=== PATIENT | male | born 1960 | race Caucasian/White ===

== ENCOUNTER 2024-01-04 13:36 | Inpatient (IN) | payer MEDICARE, OTHER ==
[~2024-01-04] VITALS: Ht 177.8 cm; Wt 79.8 kg
[2024-01-04] MEDS ORDERED: VITAMIN D325 MCG PO (15:27)
[2024-01-04] MEDS ORDERED: CRESTOR5 M1 PO (15:29)
[2024-01-04] MEDS ORDERED: CANDICIDAL CAP1 EACH PO (15:31)
[2024-01-04] MEDS ORDERED: VITAMIN B150 MG PO (15:33)
[2024-01-04] MEDS ORDERED: ARTIFICIAL TEAR OPH (15:36)
[2024-01-04] MEDS ORDERED: DULCOLAX10 M1 R (15:38)
[2024-01-04] MEDS ORDERED: MILK OF MA400 MG/5 M PO (15:45)
[2024-01-04] MEDS ORDERED: FLEET ENEMA 13133 ML R (15:48)
[2024-01-04] MEDS ORDERED: IMODIUM A-D2 M2 PO (15:50)
[2024-01-04] MEDS ORDERED: MAALOX ADVANCE355 M1 PO (15:55)
[2024-01-04] MEDS ORDERED: [UNRECOGNIZED DRUG - OTHER] T (15:58)
[2024-01-04] MEDS ORDERED: LORazepam 1 MG TAB PO PRN (16:40)
[2024-01-04] MEDS ORDERED: Ziprasidone Mesylate 20 MG VIAL IM PRN (16:45)
[2024-01-04] MEDS ORDERED: Water, Sterile 10 ML VIAL IM PRN (16:50)
[2024-01-04] MEDS ORDERED: ARICEPT10 M1 PO (16:51)
[2024-01-04] MEDS ORDERED: RISPERDAL0.5 MG PO (16:52)
[2024-01-04] MEDS ORDERED: PAROXETINE40 MG PO (16:52)
[2024-01-04] MEDS ORDERED: VISTARIL25 MG PO (16:55)
[2024-01-04] MEDS ORDERED: ACETAMINOPHEN 325 MG TAB PO PRN (17:15)
[2024-01-04] MEDS ORDERED: Magnesium Hydroxide 30 ML UDC PO PRN (17:15)
[2024-01-04] MEDS ORDERED: MG-AL HYDROXIDE/SIMETICONE 30 ML UDC PO PRN (17:15)
[2024-01-04] MEDS ORDERED: Menthol/Zinc Oxide 4 GM THIN T PRN (17:40)
[2024-01-04 20:00] VITALS: BP 159/79
[2024-01-04] MEDS ORDERED: DIVALPROEX (DR) 250 MG TAB PO SCH (21:00)
[2024-01-04] MEDS ORDERED: Memantine Hydrochloride 10 MG TAB PO SCH (21:00)
[2024-01-05 06:19] LABS: BASO % 0.6 % (0.0-1.0); EOS # 0.1 10*3/uL (0.0-0.4); EOS % 0.7 % (1.0-4.0); HEMATOCRIT 41.9 % (42.0-52.0); LYMPH # 1.6 10*3/uL (1.3-4.4); MEAN CELL VOLUME 92.5 fl (80.0-94.0); MEAN CORPUSCULAR HGB CONC 32.5 g/dl (33.0-37.0); MEAN PLATELET VOLUME 10.3 fl (9.6-12.3); MONO # 0.6 10*3/uL (0.1-1.0); NEUT # 4.9 10*3/uL (2.3-7.9); NEUT % 68.6 % (47.0-73.0); PLATELET COUNT AUTOMATED 127 10*3/uL (130-400); RED BLOOD COUNT 4.53 10*6/uL (4.50-5.90); RED CELL DISTRI WIDTH 12.2 % (0-14.5); WHITE BLOOD COUNT 7.1 10*3/uL (4.8-10.8)
[2024-01-05 06:39] LABS: ALKALINE PHOSPHATASE 64 U/L (46-116); BUN 10 mg/dl (9-23); CHLORIDE 106 mmol/L (98-107); CHOLESTEROL 121 mg/dL (<200); LDL CHOLESTEROL 62 mg/dL (9-159); POTASSIUM 4.2 mmol/L (3.4-5.1); SGPT/ALT 16 U/L (5-49); TOTAL PROTEIN 5.9 gm/dL (6.0-8.0); TRIGLYCERIDES 91 mg/dl (<150)
[2024-01-05 06:46] LABS: VITAMIN D, 25-HYDROXY 77.5 ng/mL (30-100)
[2024-01-05 07:46] VITALS: BP 127/69
[2024-01-05] MEDS ORDERED: BREXPIPRAZOLE 1 MG TABLET PO SCH (09:00)
[2024-01-05] MEDS ORDERED: Rivastigmine Tartrate 4.6 MG/24 HR PATCH T SCH (09:00)
[2024-01-05 20:00] VITALS: BP 163/89
[2024-01-06 07:45] VITALS: BP 148/67
[2024-01-06] MEDS ORDERED: Rivastigmine Tartrate 9.5 MG/24 HR PATCH T SCH (09:00)
[2024-01-06 20:00] VITALS: BP 158/83
[2024-01-07 08:00] VITALS: BP 146/79
[2024-01-07] MEDS ORDERED: BREXPIPRAZOLE 2 MG TABLET PO SCH (21:00)
[2024-01-08 08:00] VITALS: BP 127/81
[2024-01-08] MEDS ORDERED: ATORVASTATIN CALCIUM 20 MG TAB PO SCH (09:00)
[2024-01-08] MEDS ORDERED: Thiamine 100 MG TAB PO SCH (09:00)
[2024-01-08 20:00] VITALS: BP 152/84
[2024-01-09 07:41] VITALS: BP 136/83
[2024-01-09] MEDS ORDERED: DIVALPROEX SODIUM 125 MG TAB PO SCH (13:00)
[2024-01-09 20:00] VITALS: BP 141/90
[2024-01-10 08:26] VITALS: BP 141/80
[2024-01-10] MEDS ORDERED: LORazepam 1 MG TAB PO SCH (13:00)
[2024-01-10 20:00] VITALS: BP 148/87
[2024-01-11 08:00] VITALS: BP 142/81
[2024-01-11] MEDS ORDERED: RIVASTIGMINE 13.3 MG/24 HR TDM T SCH (09:00)
[2024-01-11] MEDS ORDERED: Ziprasidone Hydrochloride 60 MG CAP PO ONE (09:10)
[2024-01-11] MEDS ORDERED: DIVALPROEX (DR) 500 MG TAB PO SCH (13:00)
[2024-01-11] MEDS ORDERED: Ziprasidone Hydrochloride 60 MG CAP PO SCH (17:00)
[2024-01-11 20:00] VITALS: BP 142/80
[2024-01-12 07:48] VITALS: BP 160/89
[2024-01-12 19:20] VITALS: BP 128/73
[2024-01-12] MEDS ORDERED: DIVALPROEX SODIUM 125 MG CAP PO SCH (21:00)
[2024-01-13 07:49] VITALS: BP 120/68
[2024-01-13] MEDS ORDERED: Ziprasidone Hydrochloride 40 MG CAP PO SCH (17:00)
[2024-01-13 20:00] VITALS: BP 136/83
[2024-01-14 07:26] VITALS: BP 128/66
[2024-01-14 20:00] VITALS: BP 142/82
[2024-01-14] MEDS ORDERED: DIVALPROEX ER 500 MG TAB PO SCH (21:00)
[2024-01-15 07:39] VITALS: BP 124/79
[2024-01-15 19:05] VITALS: BP 132/78
[2024-01-16 07:01] LABS: BASO % 0.6 % (0.0-1.0); EOS # 0.1 10*3/uL (0.0-0.4); EOS % 0.9 % (1.0-4.0); LYMPH # 1.7 10*3/uL (1.3-4.4); LYMPH % 25.1 % (27.0-41.0); MEAN CELL VOLUME 93.1 fl (80.0-94.0); MEAN CORPUSCULAR HGB 31.5 pg (27.0-31.0); MEAN CORPUSCULAR HGB CONC 33.8 g/dl (33.0-37.0); MONO # 0.6 10*3/uL (0.1-1.0); MONO % 9.1 % (3.0-9.0); NEUT # 4.2 10*3/uL (2.3-7.9); PLATELET COUNT AUTOMATED 104 10*3/uL (130-400); RED BLOOD COUNT 4.51 10*6/uL (4.50-5.90); RED CELL DISTRI WIDTH 12.4 % (0-14.5); WHITE BLOOD COUNT 6.6 10*3/uL (4.8-10.8)
[2024-01-16 07:48] LABS: ALKALINE PHOSPHATASE 58 U/L (46-116); BUN 11 mg/dl (9-23); CHLORIDE 108 mmol/L (98-107); POTASSIUM 4.3 mmol/L (3.4-5.1); SGPT/ALT 12 U/L (5-49); TOTAL PROTEIN 5.7 gm/dL (6.0-8.0)
[2024-01-16 08:00] VITALS: BP 145/89
[2024-01-16 20:00] VITALS: BP 140/88
[2024-01-17 07:54] VITALS: BP 123/52
[2024-01-17 20:00] VITALS: BP 126/70
[2024-01-18 08:33] VITALS: BP 114/83
[2024-01-18 20:00] VITALS: BP 145/79
[2024-01-18] MEDS ORDERED: DIVALPROEX ER 500 MG TAB PO SCH (21:00)
[2024-01-19 07:47] VITALS: BP 95/63
[2024-01-19 19:07] VITALS: BP 130/78
[2024-01-20] MEDS ORDERED: RIVASTIGMINE1 EAC2 T (07:31)
[2024-01-20] MEDS ORDERED: MEMANTINE HCL10 MG PO (07:31)
[2024-01-20] MEDS ORDERED: ZIPRASIDONE HCL40 MG PO (07:31)
[2024-01-20] MEDS ORDERED: DIVALPROEX SOD500 M1 PO (07:31)
[2024-01-20 07:46] VITALS: BP 128/91
[2024-01-20 07:54] LABS: BASO # 0.1 10*3/uL (0.0-0.1); BASO % 0.6 % (0.0-1.0); EOS % 0.5 % (1.0-4.0); HEMATOCRIT 43.8 % (42.0-52.0); LYMPH # 1.9 10*3/uL (1.3-4.4); LYMPH % 22.8 % (27.0-41.0); MEAN CELL VOLUME 94.4 fl (80.0-94.0); MEAN CORPUSCULAR HGB 30.8 pg (27.0-31.0); MEAN CORPUSCULAR HGB CONC 32.6 g/dl (33.0-37.0); MEAN PLATELET VOLUME 11.1 fl (9.6-12.3); MONO # 0.8 10*3/uL (0.1-1.0); MONO % 9.2 % (3.0-9.0); NEUT # 5.6 10*3/uL (2.3-7.9); NEUT % 66.5 % (47.0-73.0); PLATELET COUNT AUTOMATED 103 10*3/uL (130-400); RED BLOOD COUNT 4.64 10*6/uL (4.50-5.90); RED CELL DISTRI WIDTH 12.3 % (0-14.5); WHITE BLOOD COUNT 8.4 10*3/uL (4.8-10.8)
[2024-01-20 08:41] LABS: BUN 9 mg/dl (9-23); CHLORIDE 107 mmol/L (98-107); POTASSIUM 4.1 mmol/L (3.4-5.1); VALPROIC ACID (DEPAKENE) 58.6 ug/ml (50-100)
== END 2024-01-20 17:55 | DRG 883 ==
LOC: 3N
PROVIDERS: Counselor Professional; Nurse Practitioner; ADMIT Psychiatry & Neurology Psychiatry; ATTEND Psychiatry & Neurology Psychiatry
PROC: GZHZZZZ Group Psychotherapy (ICD-10-PCS; principal; 2024-01-05)
PROC: GZ51ZZZ Individual Psychotherapy, Behavioral (ICD-10-PCS; 2024-01-05)
DX: F63.81 Intermittent explosive disorder (principal); F02.818 Dementia in other diseases classified elsewhere, unspecified severity, with other behavioral disturbance; G30.9 Alzheimer's disease, unspecified; Z87.891 Personal history of nicotine dependence; Z80.1 Family history of malignant neoplasm of trachea, bronchus and lung; Z80.3 Family history of malignant neoplasm of breast; Z79.899 Other long term (current) drug therapy

== ENCOUNTER 2024-01-04 13:51 | Emergency (ER) | payer MEDICARE, OTHER ==
[~2024-01-04] VITALS: Ht 177.8 cm; Wt 78.5 kg
[2024-01-04 14:29] LABS: BASO % 0.3 % (0.0-1.0); EOS % 0.2 % (1.0-4.0); HEMATOCRIT 43.4 % (42.0-52.0); LYMPH # 1.2 10*3/uL (1.3-4.4); LYMPH % 12.4 % (27.0-41.0); MEAN CELL VOLUME 92.9 fl (80.0-94.0); MEAN CORPUSCULAR HGB 30.4 pg (27.0-31.0); MEAN CORPUSCULAR HGB CONC 32.7 g/dl (33.0-37.0); MEAN PLATELET VOLUME 10.7 fl (9.6-12.3); MONO # 0.5 10*3/uL (0.1-1.0); NEUT # 7.6 10*3/uL (2.3-7.9); NEUT % 81.9 % (47.0-73.0); PLATELET COUNT AUTOMATED 142 10*3/uL (130-400); RED BLOOD COUNT 4.67 10*6/uL (4.50-5.90); RED CELL DISTRI WIDTH 12.3 % (0-14.5); WHITE BLOOD COUNT 9.2 10*3/uL (4.8-10.8)
[2024-01-04 14:48] LABS: BUN 10 mg/dl (9-23); CHLORIDE 106 mmol/L (98-107); SGPT/ALT 17 U/L (5-49)
[2024-01-04 14:49] LABS: ETHYL ALCOHOL < 3.0 mg/dl (<3)
[2024-01-04 15:15] LABS: BILIRUBIN Negative (Negative); BLOOD Negative (Negative); CLARITY Clear (Clear); COLOR Yellow (Yellow); GLUCOSE Negative (Negative); KETONE Negative (Negative); LEUKO ESTERASE Negative (Negative); NITRITE Negative (Negative); PH 5.5 (4.5-8.0)
[2024-01-04 15:22] LABS: URINE AMPHETAMINES Negative (1000ng/ml); URINE BARBITURATES Negative (200ng/ml); URINE BENZODIAZEPINES Negative (200ng/ml); URINE CANNABINOIDS (THC) Negative (50ng/ml); URINE COCAINE Negative (300ng/ml); URINE METHADONE Negative (300ng/ml); URINE OPIATES Negative (300ng/ml); URINE PHENCYCLIDINE Negative (25ng/ml)
[2024-01-04] MEDS ORDERED: VITAMIN D325 MCG PO (15:27)
[2024-01-04] MEDS ORDERED: CRESTOR5 M1 PO (15:29)
[2024-01-04] MEDS ORDERED: CANDICIDAL CAP1 EACH PO (15:31)
[2024-01-04] MEDS ORDERED: VITAMIN B150 MG PO (15:33)
[2024-01-04] MEDS ORDERED: ARTIFICIAL TEAR OPH (15:36)
[2024-01-04] MEDS ORDERED: DULCOLAX10 M1 R (15:38)
[2024-01-04 15:42] LABS: WBC 0-2 wbc/hpf (0-5)
[2024-01-04] MEDS ORDERED: MILK OF MA400 MG/5 M PO (15:45)
[2024-01-04] MEDS ORDERED: FLEET ENEMA 13133 ML R (15:48)
[2024-01-04] MEDS ORDERED: IMODIUM A-D2 M2 PO (15:50)
[2024-01-04] MEDS ORDERED: MAALOX ADVANCE355 M1 PO (15:55)
[2024-01-04] MEDS ORDERED: [UNRECOGNIZED DRUG - OTHER] T (15:58)
[2024-01-04] MEDS ORDERED: ARICEPT10 M1 PO (16:51)
[2024-01-04] MEDS ORDERED: RISPERDAL0.5 MG PO (16:52)
[2024-01-04] MEDS ORDERED: PAROXETINE40 MG PO (16:52)
[2024-01-04] MEDS ORDERED: VISTARIL25 MG PO (16:55)
== END 2024-01-04 16:00 ==
LOC: ED 13:51
PROVIDERS: Nurse Practitioner Family
DX: F03.90 Unspecified dementia, unspecified severity, without behavioral disturbance, psychotic disturbance, mood disturbance, and anxiety (principal); Z20.822 Contact with and (suspected) exposure to COVID-19; Z98.890 Other specified postprocedural states

== ENCOUNTER 2024-01-23 21:28 | Emergency (ER) | payer MEDICARE, OTHER ==
[~2024-01-23] VITALS: Ht 177.8 cm; Wt 81.6 kg
[~2024-01-23 21:28] MED LIST: ARICEPT10 M1 PO; ARTIFICIAL TEAR OPH; CANDICIDAL CAP1 EACH PO; CRESTOR5 M1 PO; DIVALPROEX SOD500 M1 PO; DULCOLAX10 M1 R; FLEET ENEMA 13133 ML R; IMODIUM A-D2 M2 PO; MAALOX ADVANCE355 M1 PO; MEMANTINE HCL10 MG PO; MILK OF MA400 MG/5 M PO; PAROXETINE40 MG PO; RISPERDAL0.5 MG PO; RIVASTIGMINE1 EAC2 T; VISTARIL25 MG PO; VITAMIN B150 MG PO; VITAMIN D325 MCG PO; ZIPRASIDONE HCL40 MG PO; [UNRECOGNIZED DRUG - OTHER] T
[2024-01-23 22:17] LABS: BASO # 0.1 10*3/uL (0.0-0.1); BASO % 0.3 % (0.0-1.0); EOS % 0.1 % (1.0-4.0); HEMATOCRIT 41.7 % (42.0-52.0); LYMPH # 1.6 10*3/uL (1.3-4.4); LYMPH % 10.3 % (27.0-41.0); MEAN CELL VOLUME 91.9 fl (80.0-94.0); MEAN CORPUSCULAR HGB 30.8 pg (27.0-31.0); MEAN CORPUSCULAR HGB CONC 33.6 g/dl (33.0-37.0); MEAN PLATELET VOLUME 11.2 fl (9.6-12.3); MONO # 1.2 10*3/uL (0.1-1.0); MONO % 7.7 % (3.0-9.0); NEUT # 12.5 10*3/uL (2.3-7.9); NEUT % 81.3 % (47.0-73.0); PLATELET COUNT AUTOMATED 141 10*3/uL (130-400); RED BLOOD COUNT 4.54 10*6/uL (4.50-5.90); RED CELL DISTRI WIDTH 12.2 % (0-14.5); WHITE BLOOD COUNT 15.3 10*3/uL (4.8-10.8)
[2024-01-23 22:25] LABS: ACT PARTIAL THROMBO TIME 23.2 SECONDS (20.0-32.1)
[2024-01-23 22:35] LABS: ALKALINE PHOSPHATASE 68 U/L (46-116); BUN 9 mg/dl (9-23); CHLORIDE 105 mmol/L (98-107); CPK 59 U/L (34-171); LIPASE 39 U/L (12-53); POTASSIUM 3.8 mmol/L (3.4-5.1); SGPT/ALT 10 U/L (5-49); TOTAL PROTEIN 6.7 gm/dL (6.0-8.0)
[2024-01-23 22:45] LABS: ETHYL ALCOHOL < 3.0 mg/dl (<3)
== END 2024-01-24 00:10 | disposition home or self-care (01) ==
LOC: ED 21:28
PROVIDERS: Internal Medicine
DX: F03.90 Unspecified dementia, unspecified severity, without behavioral disturbance, psychotic disturbance, mood disturbance, and anxiety (principal); Z79.899 Other long term (current) drug therapy; Z98.890 Other specified postprocedural states; Z87.891 Personal history of nicotine dependence